=== PATIENT | female | born 1935 | race Caucasian/White ===

== ENCOUNTER 2016-12-11 20:04 | Emergency (ER) | payer MEDICARE, OTHER ==
[~2016-12-11] VITALS: Ht 165.1 cm; Wt 62.0 kg
[2016-12-11] MEDS ORDERED: DIPH,PERTUSS(ACELL),TET VAC/PF 0.5 ML IM-VACC ONE (20:30)
[2016-12-11] MEDS ORDERED: PLEASE ENTER ALLERGIES MC SCH ×2 (21:00)
[2016-12-11 21:21] LABS: BLOOD UREA NITROGEN 13 mg/dL (7-18)
[2016-12-11] MEDS ORDERED: POTASSIUM CHLORIDE 20 MEQ TAB.ER.PRT PO ONE (22:00)
[2016-12-11] MEDS ORDERED: POTASSIUM CHLORIDE 20 MEQ TAB.ER.PRT ONE (22:28)
[2016-12-11 22:34] VITALS: BP 118/72
== END 2016-12-11 23:01 | disposition home or self-care (01) ==
LOC: ED 22:10
DX: S01.01XA Laceration without foreign body of scalp, initial encounter (principal); S50.811A Abrasion of right forearm, initial encounter; S80.811A Abrasion, right lower leg, initial encounter; F10.120 Alcohol abuse with intoxication, uncomplicated; W10.0XXA Fall (on)(from) escalator, initial encounter; Y93.89 Activity, other specified; Y99.8 Other external cause status; Y92.89 Other specified places as the place of occurrence of the external cause
CPT/HCPCS: 12002; 36415; 70450; 72125; 80048; 82040; 85025; 85610; 85730; 93005